=== PATIENT | male | born 1995 ===

== ENCOUNTER 2017-04-27 00:07 | Inpatient (IN) | payer OTHER ==
[2017-04-27 00:11] VITALS: BMI 21.5
[2017-04-27] MEDS ORDERED: Sodium Chloride 0.9% 1,000 ML IV STA ×2 (00:12→01:20)
[2017-04-27 00:45] LABS: ABG ALLEN TEST YES; ARTERIAL BLOOD GAS HCO3 25.1 mmol/L (21-28); ARTERIAL BLOOD GAS O2 SAT 94.2 % (95-98); ARTERIAL BLOOD GAS PCO2 57 mm/Hg (35-45); ARTERIAL BLOOD GAS PO2 66 mm/Hg (80-100); ARTERIAL BLOOD GAS TCO2 29.7 mmol/L (22-28)
[2017-04-27 00:54] LABS: BASO # 0.1 K/uL (0.0-0.2); BASO % 0.8 % (0.0-2.0); EOS # 0.2 K/uL (0.0-0.7); EOS % 3.1 % (0.0-4.0); HEMOGLOBIN 14.7 g/dL (12.0-18.0); LYMPH # 3.1 K/uL (1.0-4.3); LYMPH % 48.3 % (20.0-40.0); MEAN CELL VOLUME 87.6 fl (80.0-94.0); MEAN CORPUSCULAR HEMOGLOBIN 28.8 pg (27.0-31.0); MEAN CORPUSCULAR HGB CONC 32.9 g/dL (33.0-37.0); MEAN PLATELET VOLUME 7.5 fl (7.2-11.7); MONO # 0.4 K/uL (0.0-0.8); NEUT # 2.7 K/uL (1.8-7.0); NEUT % 41.8 % (50.0-75.0); NRBC % 0.1 % (0.0-0.0); RBC 5.09 Mil/uL (4.40-5.90); RED CELL DISTRIBUTION WIDTH 13.3 % (11.5-14.5); WHITE BLOOD COUNT 6.4 K/uL (4.8-10.8)
[2017-04-27 01:07] LABS: ALB/GLOB RATIO 1.4 (1.0-2.1); ALBUMIN 4.6 g/dL (3.5-5.0); ALT/SGPT 52 U/L (21-72); AST/SGOT 30 U/L (17-59); BLOOD UREA NITROGEN 12 mg/dl (9-20); CALCIUM 8.9 mg/dL (8.4-10.2); GFR AFRICAN-AMERICAN > 60; GFR NON-AFRICAN AMERICAN > 60; MAGNESIUM 2.3 MG/DL (1.6-2.3)
--- NOTE | 2017-04-27 01:10 | ED PDOC ---
HPI: Psych/Substance Abuse Time Seen by Provider: 04/27/17 00:10 Chief Complaint (Nursing): Substance Abuse Chief Complaint (Provider): Substance Abuse ED Caveat: Acuity of Condition (Sedated) History Per: Other (Staff and pt's friend) History/Exam Limitations: clinical condition Additional Complaint(s): 40 y/o male came to the ED as a visitor (visiting pt named Issac Gerber) and was found slumped on the chair and unresponsive by a staff member. Mr Gerber reports that Cam took some tablets of the psychiatric medications the initial patient had in his bag which include gabapentin 100mg, seroquel 100mg, trazodone 100mg, metformin 850mg, vitamin B1 and cerovite. Patient's previous visits demonstrates history of substance abuse and alcohol intoxication. Past Medical History Reviewed: Unable To Obtain Vital Signs: Last Vital Signs Temp 98.0 F 04/27/17 00:26 Pulse 136 H 04/27/17 00:26 Resp 20 04/27/17 00:26 BP 113/74 04/27/17 00:26 Pulse Ox 97 04/27/17 00:26 - Family History Family History: States: Unknown Family Hx - Home Medications Home Medications: Ambulatory Orders Medication Instructions Recorded Unobtainable 04/27/17 - Allergies Allergies/Adverse Reactions: Allergies Allergy/AdvReac Type Severity Reaction Status Date / Time Unobtainable Allergy Verified 03/23/17 20:40 Review of Systems Review Of Systems: ROS cannot be obtained secondary to pt's inabilty to answer questions. (Cannot be obtained du to patient's clinical condition) Neurological: Positive for: Other (Possible overdose) Physical Exam - Reviewed Nursing Documentation Reviewed: Yes Vital Signs Reviewed: Yes - Physical Exam Appears: Positive for: In Acute Distress (obtunded) Head Exam: Positive for: ATRAUMATIC, NORMOCEPHALIC Skin: Positive for: Warm, Dry Eye Exam: Positive for: EOMI, PERRL ENT: Positive for: Other (tacky mucus membranes, +gag reflex) Neck: Positive for: Painless ROM, Supple Cardiovascular/Chest: Positive for: Regular Rate, Rhythm. Negative for: Murmur Respiratory: Negative for: Rales, Wheezing, Respiratory Distress Gastrointestinal/Abdominal: Positive for: Soft. Negative for: Tenderness Back: Positive for: Normal Inspection. Negative for: Decreased ROM Extremity: Negative for: Pedal Edema, Deformity Lymphatic: Negative for: Adenopathy Neurologic/Psych: Positive for: Other (Deeply lethargic, but responds to painful and loud verbal stimuli, attempts to open eyes when asked but falls back asleep. GCS 10). Negative for: Alert, Oriented, Motor/Sensory Deficits - Laboratory Results Result Diagrams: 04/28/17 05:00 04/28/17 05:00 - ECG ECG: Positive for: Interpreted By Me ECG Rhythm: Positive for: Normal QRS, Normal ST Segment, Sinus Rhythm O2 Sat by Pulse Oximetry: 97 (RA) Pulse Ox Interpretation: Normal - Radiology X-Ray: Interpreted by Me X-Ray Interpretation: No Acute Disease - Critical Care Total Time (In Min): 45 Documented Critical Care: Time excludes all time spent performint seperately billable procedures Medical Decision Making Medical Decision Making: Time: 00:11 Initial Impression: Possible overdose Plan: EKG Acetaminophen Alcohol serum CMP Dilantin Drug screen Magnesium Phosphorous Salicylate Valproic acid Poison control consulting Urine dipstick Chest x-ray 1:1 observation Call poison control Glucose, blood, POC Urinary catheter insertion O2 via nasal cannula Reevaluation Time: 00:50 --Case was discussed with Sarita at poison center who recommended supportive care, IV fluids for hypotension, caution for respiratory depression. --Labs for coingestions --EKG repeat in about 4-6 hours. Labs demonstrate acidosis and elevated lactic acid (dehydration v lactic acidosis due to metformin). Elevated BAL. On reeval pt slightly more easily arousable, but continues to fall asleep immediately. Scribe Attestation: Documented by Gabino Arriaga acting as a scribe for Andressa Ghosh MD. Scribe Attestation: All medical record entries made by the Scribe were at my direction and personally dictated by me. I have reviewed the chart and agree that the record accurately reflects my personal performance of the history, physical exam, medical decision making, and the department course for this patient. I have also personally directed, reviewed, and agree with the discharge instructions and disposition. Disposition - Clinical Impression Clinical Impression: Overdose, Alcohol intoxication Discussed With : Richard Concepcion Doctor Will See Patient In The: ED - Disposition Disposition Time: 00:30 Condition: CRITICAL - Pt Status Changed To: Hospital Disposition Of: Inpatient - Admit Certification Admit to Inpatient:: After my assessment, the patient will require hospitalization for at least two midnights. This is because of the severity of symptoms shown, intensity of services needed, and/or the medical risk in this patient being treated as an outpatient. - POA Present On Arrival: Falls Or Trauma
[2017-04-27 01:23] LABS: BARBITURATES, UR NEGATIVE (NEGATIVE); BENZODIAZEPINES, UR NEGATIVE (NEGATIVE); OPIATES, UR NEGATIVE (NEGATIVE); PHENCYCLIDINE, UR NEGATIVE (NEGATIVE)
[2017-04-27 01:41] LABS: ACETAMINOPHEN < 10.0 ug/ml (10.0-30.0); DILANTIN (PHENYTOIN) < 3.0 ug/ML (10-20); SALICYLATE < 1.0 mg/dl
[2017-04-27 01:43] LABS: VALPROIC ACID < 10.0 ug/mL (50.0-100.0)
--- NOTE | 2017-04-27 02:40 | CP.PCM.HP ---
History of Present Illness - History of Present Illness History of Present Illness: CC: Overdose HPI: This is a 40 y/o male with unknown history who was visiting another patient here in ER when he decided to take several of this patient's medications for unclear reasons. Medications included neurontin, seroquel, and trazadone among others. Patient is somnolent and provides no history. All history obtained from chart and staff. ROS: Cannot be performed, patient not responsive MHx/SHx: Unknown, as patient cannot provide Allergies: Unknown Medications: Unknown Family Hx/Social Hx: Unknown Present on Admission - Present on Admission Any Indicators Present on Admission: No Past Patient History - Past Social History Smoking Status: Unknown If Ever Smoked - PSYCHIATRIC Hx Substance Use: Yes - SURGICAL HISTORY Hx Surgeries: No Meds Allergies/Adverse Reactions: Allergies Allergy/AdvReac Type Severity Reaction Status Date / Time Unobtainable Allergy Verified 03/23/17 20:40 Physical Exam - Constitutional Additional comments: somnolent, barely rousable with sternal rub - Head Exam Head Exam: ATRAUMATIC - ENT Exam ENT Exam: Mucous Membranes Moist - Respiratory Exam Respiratory Exam: Clear to Auscultation Bilateral, NORMAL BREATHING PATTERN - Cardiovascular Exam Cardiovascular Exam: REGULAR RHYTHM, +S1, +S2 - GI/Abdominal Exam GI & Abdominal Exam: Normal Bowel Sounds, Soft - Extremities Exam Extremities exam: Positive for: normal inspection - Neurological Exam Additional comments: as noted, patient completely somnolent - Skin Skin Exam: Dry, Warm Results - Vital Signs Recent Vital Signs: Last Vital Signs Temp 98.0 F 04/27/17 00:26 Pulse 136 H 04/27/17 00:26 Resp 20 04/27/17 00:26 BP 113/74 04/27/17 00:26 Pulse Ox 97 04/27/17 01:20 - Labs Result Diagrams: 04/27/17 00:49 04/27/17 00:49 Labs: Laboratory Results - last 24 hr 04/27/17 04/27/17 04/27/17 00:36 00:49 00:49 WBC RBC Hgb Hct MCV MCH MCHC RDW Plt Count MPV Neut % (Auto) Lymph % (Auto) Holt % (Auto) Eos % (Auto) Baso % (Auto) Neut # Lymph # Holt # Eos # Baso # pCO2 57 H pO2 66 L HCO3 25.1 ABG pH 7.30 L ABG Total CO2 29.7 H ABG O2 Saturation 94.2 L ABG Base Excess 0.4 Castillo Test Yes ABG Potassium 3.6 A-a O2 Difference 62.0 Sodium 142.0 149 H Chloride 106.0 104 Glucose 108 Lactate 2.6 H Vent Mode 2lnc FiO2 28.0 Crit Value Called To hayley Ghosh md Crit Value Called By [facility] Crit Value Read Back Y Blood Gas Notified Time 44 Potassium 3.6 Carbon Dioxide 26 Anion Gap 23 H BUN 12 Creatinine 0.9 Est GFR ( Amer) > 60 Est GFR (Non-Af Amer) > 60 Random Glucose 97 Calcium 8.9 Phosphorus 5.4 H Magnesium 2.3 Total Bilirubin 0.3 AST 30 ALT 52 Alkaline Phosphatase 69 Total Protein 7.8 Albumin 4.6 Globulin 3.3 Albumin/Globulin Ratio 1.4 Arterial Blood Potassium 3.6 Salicylates < 1.0 Urine Opiates Screen Urine Methadone Screen Acetaminophen < 10.0 L Ur Barbiturates Screen Phenytoin < 3.0 L Valproic Acid < 10.0 L Ur Phencyclidine Scrn Ur Amphetamines Screen U Benzodiazepines Scrn U Oth Cocaine Metabols U Cannabinoids Screen Alcohol, Quantitative 305 H* 04/27/17 04/27/17 00:49 01:04 WBC 6.4 RBC 5.09 Hgb 14.7 Hct 44.6 MCV 87.6 MCH 28.8 MCHC 32.9 L RDW 13.3 Plt Count 317 MPV 7.5 Neut % (Auto) 41.8 L Lymph % (Auto) 48.3 H Holt % (Auto) 6.0 Eos % (Auto) 3.1 Baso % (Auto) 0.8 Neut # 2.7 Lymph # 3.1 Holt # 0.4 Eos # 0.2 Baso # 0.1 pCO2 pO2 HCO3 ABG pH ABG Total CO2 ABG O2 Saturation ABG Base Excess Castillo Test ABG Potassium A-a O2 Difference Sodium Chloride Glucose Lactate Vent Mode FiO2 Crit Value Called To Crit Value Called By Crit Value Read Back Blood Gas Notified Time Potassium Carbon Dioxide Anion Gap BUN Creatinine Est GFR ( Amer) Est GFR (Non-Af Amer) Random Glucose Calcium Phosphorus Magnesium Total Bilirubin AST ALT Alkaline Phosphatase Total Protein Albumin Globulin Albumin/Globulin Ratio Arterial Blood Potassium Salicylates Urine Opiates Screen Negative Urine Methadone Screen Negative Acetaminophen Ur Barbiturates Screen Negative Phenytoin Valproic Acid Ur Phencyclidine Scrn Negative Ur Amphetamines Screen Negative U Benzodiazepines Scrn Negative U Oth Cocaine Metabols Negative U Cannabinoids Screen Negative Alcohol, Quantitative Assessment & Plan (1) Overdose Assessment and Plan: a/p: 40 y/o male with multi Rx medication overdose -Admit to ICU -NPO, IVF -Supportive care per poison control -Repeat labs, EtOH level in AM; EKG in AM -Psych consult in AM -SCDs for DVT PPx Status: Acute (2) Alcohol intoxication Status: Acute (3) DVT prophylaxis Status: Acute
[2017-04-27] MEDS ORDERED: Sodium Chloride 0.9% 1,000 ML IV SCH (02:45)
[2017-04-27 05:33] LABS: HEMOGLOBIN 13.1 g/dL (12.0-18.0); MEAN CELL VOLUME 87.8 fl (80.0-94.0); MEAN CORPUSCULAR HEMOGLOBIN 28.6 pg (27.0-31.0); MEAN CORPUSCULAR HGB CONC 32.5 g/dL (33.0-37.0); MEAN PLATELET VOLUME 7.4 fl (7.2-11.7); RBC 4.57 Mil/uL (4.40-5.90); RED CELL DISTRIBUTION WIDTH 13.3 % (11.5-14.5); WHITE BLOOD COUNT 6.2 K/uL (4.8-10.8)
[2017-04-27 06:02] LABS: ALB/GLOB RATIO 1.3 (1.0-2.1); ALBUMIN 3.7 g/dL (3.5-5.0); ALT/SGPT 48 U/L (21-72); AST/SGOT 25 U/L (17-59); BLOOD UREA NITROGEN 10 mg/dl (9-20); CALCIUM 8.3 mg/dL (8.4-10.2); GFR AFRICAN-AMERICAN > 60; GFR NON-AFRICAN AMERICAN > 60
--- NOTE | 2017-04-27 09:17 | RAD ---
HISTORY: possible overdose COMPARISON: No prior. FINDINGS: LUNGS: No active pulmonary disease. PLEURA: No significant pleural effusion identified, no pneumothorax apparent. CARDIOVASCULAR: Normal. OSSEOUS STRUCTURES: Potential levoscoliotic thoracolumbar spinal deformity versus position related changes in curvature. VISUALIZED UPPER ABDOMEN: Normal. OTHER FINDINGS: None. IMPRESSION: No acute cardiopulmonary is appreciable.
--- NOTE | 2017-04-27 10:31 | CP.CCUPN ---
CCU Objective - Vital Signs / Intake & Output Vital Signs (Last 4 hours): Vital Signs Temp Pulse Resp BP Pulse Ox 04/27/17 10:00 92 H 10 L 110/51 L 100 04/27/17 08:00 98.4 F 79 11 L 110/55 L 98 Intake and Output (Last 8hrs): Intake & Output 04/26/17 04/27/17 04/27/17 22:59 06:59 14:59 Intake Total 250 Output Total 1150 100 Balance -1150 150 Weight 175 lb Intake: IV 250 Output: Urine 1150 100 Urethral (Ray) 1150 100 - Medications Active Medications: Active Medications Generic Name Dose Route Start Last Admin Trade Name Freq PRN Reason Stop Dose Admin Sodium Chloride 1,000 mls @ 100 mls/hr 04/27/17 02:45 04/27/17 03:30 Sodium Chloride 0.9% IV 04/27/17 22:44 100 mls/hr .Q10H SUNITHA Administration - Patient Studies Lab Studies: Lab Studies 04/27/17 04/27/17 04/27/17 Range/Units 10:17 05:39 05:00 WBC (4.8-10.8) K/uL RBC (4.40-5.90) Mil/uL Hgb (12.0-18.0) g/dL Hct (35.0-51.0) % MCV (80.0-94.0) fl MCH (27.0-31.0) pg MCHC (33.0-37.0) g/dL RDW (11.5-14.5) % Plt Count (130-400) K/uL MPV (7.2-11.7) fl Neut % (Auto) (50.0-75.0) % Lymph % (Auto) (20.0-40.0) % Rosebud % (Auto) (0.0-10.0) % Eos % (Auto) (0.0-4.0) % Baso % (Auto) (0.0-2.0) % Neut # (1.8-7.0) K/uL Lymph # (1.0-4.3) K/uL Rosebud # (0.0-0.8) K/uL Eos # (0.0-0.7) K/uL Baso # (0.0-0.2) K/uL pCO2 (35-45) mm/Hg pO2 (80-100) mm/Hg HCO3 (21-28) mmol/L ABG pH (7.35-7.45) ABG Total CO2 (22-28) mmol/L ABG O2 Saturation (95-98) % ABG Base Excess (-2.0-3.0) mmol/L Castillo Test ABG Potassium (3.6-5.2) mmol/L A-a O2 Difference mm/Hg Sodium 149 H (132-148) mmol/L Chloride 108 H (98-107) mmol/L Glucose (75-110) mg/dL Lactate (0.7-2.1) mmol/L Vent Mode FiO2 % Crit Value Called To Crit Value Called By Crit Value Read Back Blood Gas Notified Time Potassium 4.2 (3.6-5.0) MMOL/L Carbon Dioxide 25 (22-30) mmol/L Anion Gap 20 (10-20) BUN 10 (9-20) mg/dl Creatinine 0.8 (0.8-1.5) mg/dl Est GFR ( Amer) > 60 Est GFR (Non-Af Amer) > 60 POC Glucose (mg/dL) 69 79 (65-110) mg/dL Random Glucose 102 (75-110) mg/dL Calcium 8.3 L (8.4-10.2) mg/dL Phosphorus (2.5-4.5) mg/dl Magnesium (1.6-2.3) MG/DL Total Bilirubin 0.2 (0.2-1.3) mg/dl AST 25 (17-59) U/L ALT 48 (21-72) U/L Alkaline Phosphatase 55 (38-126) U/L Total Protein 6.5 (6.3-8.2) G/DL Albumin 3.7 (3.5-5.0) g/dL Globulin 2.8 (2.2-3.9) gm/dL Albumin/Globulin Ratio 1.3 (1.0-2.1) Arterial Blood Potassium (3.6-5.2) mmol/L Salicylates mg/dl Urine Opiates Screen (NEGATIVE) Urine Methadone Screen (NEGATIVE) Acetaminophen (10.0-30.0) ug/ml Ur Barbiturates Screen (NEGATIVE) Phenytoin (10-20) ug/ML Valproic Acid (50.0-100.0) ug/mL Ur Phencyclidine Scrn (NEGATIVE) Ur Amphetamines Screen (NEGATIVE) U Benzodiazepines Scrn (NEGATIVE) U Oth Cocaine Metabols (NEGATIVE) U Cannabinoids Screen (NEGATIVE) Alcohol, Quantitative 172 H (0-10) mg/dl 04/27/17 04/27/17 04/27/17 Range/Units 05:00 03:59 01:04 WBC 6.2 (4.8-10.8) K/uL RBC 4.57 (4.40-5.90) Mil/uL Hgb 13.1 (12.0-18.0) g/dL Hct 40.1 (35.0-51.0) % MCV 87.8 (80.0-94.0) fl MCH 28.6 (27.0-31.0) pg MCHC 32.5 L (33.0-37.0) g/dL RDW 13.3 (11.5-14.5) % Plt Count 274 (130-400) K/uL MPV 7.4 (7.2-11.7) fl Neut % (Auto) (50.0-75.0) % Lymph % (Auto) (20.0-40.0) % Rosebud % (Auto) (0.0-10.0) % Eos % (Auto) (0.0-4.0) % Baso % (Auto) (0.0-2.0) % Neut # (1.8-7.0) K/uL Lymph # (1.0-4.3) K/uL Rosebud # (0.0-0.8) K/uL Eos # (0.0-0.7) K/uL Baso # (0.0-0.2) K/uL pCO2 (35-45) mm/Hg pO2 (80-100) mm/Hg HCO3 (21-28) mmol/L ABG pH (7.35-7.45) ABG Total CO2 (22-28) mmol/L ABG O2 Saturation (95-98) % ABG Base Excess (-2.0-3.0) mmol/L Castillo Test ABG Potassium (3.6-5.2) mmol/L A-a O2 Difference mm/Hg Sodium (132-148) mmol/L Chloride (98-107) mmol/L Glucose (75-110) mg/dL Lactate (0.7-2.1) mmol/L Vent Mode FiO2 % Crit Value Called To Crit Value Called By Crit Value Read Back Blood Gas Notified Time Potassium (3.6-5.0) MMOL/L Carbon Dioxide (22-30) mmol/L Anion Gap (10-20) BUN (9-20) mg/dl Creatinine (0.8-1.5) mg/dl Est GFR ( Amer) Est GFR (Non-Af Amer) POC Glucose (mg/dL) 96 (65-110) mg/dL Random Glucose (75-110) mg/dL Calcium (8.4-10.2) mg/dL Phosphorus (2.5-4.5) mg/dl Magnesium (1.6-2.3) MG/DL Total Bilirubin (0.2-1.3) mg/dl AST (17-59) U/L ALT (21-72) U/L Alkaline Phosphatase (38-126) U/L Total Protein (6.3-8.2) G/DL Albumin (3.5-5.0) g/dL Globulin (2.2-3.9) gm/dL Albumin/Globulin Ratio (1.0-2.1) Arterial Blood Potassium (3.6-5.2) mmol/L Salicylates mg/dl Urine Opiates Screen Negative (NEGATIVE) Urine Methadone Screen Negative (NEGATIVE) Acetaminophen (10.0-30.0) ug/ml Ur Barbiturates Screen Negative (NEGATIVE) Phenytoin (10-20) ug/ML Valproic Acid (50.0-100.0) ug/mL Ur Phencyclidine Scrn Negative (NEGATIVE) Ur Amphetamines Screen Negative (NEGATIVE) U Benzodiazepines Scrn Negative (NEGATIVE) U Oth Cocaine Metabols Negative (NEGATIVE) U Cannabinoids Screen Negative (NEGATIVE) Alcohol, Quantitative (0-10) mg/dl 04/27/17 04/27/17 04/27/17 Range/Units 00:49 00:49 00:49 WBC 6.4 (4.8-10.8) K/uL RBC 5.09 (4.40-5.90) Mil/uL Hgb 14.7 (12.0-18.0) g/dL Hct 44.6 (35.0-51.0) % MCV 87.6 (80.0-94.0) fl MCH 28.8 (27.0-31.0) pg MCHC 32.9 L (33.0-37.0) g/dL RDW 13.3 (11.5-14.5) % Plt Count 317 (130-400) K/uL MPV 7.5 (7.2-11.7) fl Neut % (Auto) 41.8 L (50.0-75.0) % Lymph % (Auto) 48.3 H (20.0-40.0) % Rosebud % (Auto) 6.0 (0.0-10.0) % Eos % (Auto) 3.1 (0.0-4.0) % Baso % (Auto) 0.8 (0.0-2.0) % Neut # 2.7 (1.8-7.0) K/uL Lymph # 3.1 (1.0-4.3) K/uL Rosebud # 0.4 (0.0-0.8) K/uL Eos # 0.2 (0.0-0.7) K/uL Baso # 0.1 (0.0-0.2) K/uL pCO2 (35-45) mm/Hg pO2 (80-100) mm/Hg HCO3 (21-28) mmol/L ABG pH (7.35-7.45) ABG Total CO2 (22-28) mmol/L ABG O2 Saturation (95-98) % ABG Base Excess (-2.0-3.0) mmol/L Castillo Test ABG Potassium (3.6-5.2) mmol/L A-a O2 Difference mm/Hg Sodium 149 H (132-148) mmol/L Chloride 104 (98-107) mmol/L Glucose (75-110) mg/dL Lactate (0.7-2.1) mmol/L Vent Mode FiO2 % Crit Value Called To Crit Value Called By Crit Value Read Back Blood Gas Notified Time Potassium 3.6 (3.6-5.0) MMOL/L Carbon Dioxide 26 (22-30) mmol/L Anion Gap 23 H (10-20) BUN 12 (9-20) mg/dl Creatinine 0.9 (0.8-1.5) mg/dl Est GFR ( Amer) > 60 Est GFR (Non-Af Amer) > 60 POC Glucose (mg/dL) (65-110) mg/dL Random Glucose 97 (75-110) mg/dL Calcium 8.9 (8.4-10.2) mg/dL Phosphorus 5.4 H (2.5-4.5) mg/dl Magnesium 2.3 (1.6-2.3) MG/DL Total Bilirubin 0.3 (0.2-1.3) mg/dl AST 30 (17-59) U/L ALT 52 (21-72) U/L Alkaline Phosphatase 69 (38-126) U/L Total Protein 7.8 (6.3-8.2) G/DL Albumin 4.6 (3.5-5.0) g/dL Globulin 3.3 (2.2-3.9) gm/dL Albumin/Globulin Ratio 1.4 (1.0-2.1) Arterial Blood Potassium (3.6-5.2) mmol/L Salicylates < 1.0 mg/dl Urine Opiates Screen (NEGATIVE) Urine Methadone Screen (NEGATIVE) Acetaminophen < 10.0 L (10.0-30.0) ug/ml Ur Barbiturates Screen (NEGATIVE) Phenytoin < 3.0 L (10-20) ug/ML Valproic Acid < 10.0 L (50.0-100.0) ug/mL Ur Phencyclidine Scrn (NEGATIVE) Ur Amphetamines Screen (NEGATIVE) U Benzodiazepines Scrn (NEGATIVE) U Oth Cocaine Metabols (NEGATIVE) U Cannabinoids Screen (NEGATIVE) Alcohol, Quantitative 305 H* (0-10) mg/dl 04/27/17 Range/Units 00:36 WBC (4.8-10.8) K/uL RBC (4.40-5.90) Mil/uL Hgb (12.0-18.0) g/dL Hct (35.0-51.0) % MCV (80.0-94.0) fl MCH (27.0-31.0) pg MCHC (33.0-37.0) g/dL RDW (11.5-14.5) % Plt Count (130-400) K/uL MPV (7.2-11.7) fl Neut % (Auto) (50.0-75.0) % Lymph % (Auto) (20.0-40.0) % Rosebud % (Auto) (0.0-10.0) % Eos % (Auto) (0.0-4.0) % Baso % (Auto) (0.0-2.0) % Neut # (1.8-7.0) K/uL Lymph # (1.0-4.3) K/uL Rosebud # (0.0-0.8) K/uL Eos # (0.0-0.7) K/uL Baso # (0.0-0.2) K/uL pCO2 57 H (35-45) mm/Hg pO2 66 L (80-100) mm/Hg HCO3 25.1 (21-28) mmol/L ABG pH 7.30 L (7.35-7.45) ABG Total CO2 29.7 H (22-28) mmol/L ABG O2 Saturation 94.2 L (95-98) % ABG Base Excess 0.4 (-2.0-3.0) mmol/L Castillo Test Yes ABG Potassium 3.6 (3.6-5.2) mmol/L A-a O2 Difference 62.0 mm/Hg Sodium 142.0 (132-148) mmol/L Chloride 106.0 (98-107) mmol/L Glucose 108 (75-110) mg/dL Lactate 2.6 H (0.7-2.1) mmol/L Vent Mode 2lnc FiO2 28.0 % Crit Value Called To hayley Ghosh md Crit Value Called By [facility] Crit Value Read Back Y Blood Gas Notified Time 44 Potassium (3.6-5.0) MMOL/L Carbon Dioxide (22-30) mmol/L Anion Gap (10-20) BUN (9-20) mg/dl Creatinine (0.8-1.5) mg/dl Est GFR ( Amer) Est GFR (Non-Af Amer) POC Glucose (mg/dL) (65-110) mg/dL Random Glucose (75-110) mg/dL Calcium (8.4-10.2) mg/dL Phosphorus (2.5-4.5) mg/dl Magnesium (1.6-2.3) MG/DL Total Bilirubin (0.2-1.3) mg/dl AST (17-59) U/L ALT (21-72) U/L Alkaline Phosphatase (38-126) U/L Total Protein (6.3-8.2) G/DL Albumin (3.5-5.0) g/dL Globulin (2.2-3.9) gm/dL Albumin/Globulin Ratio (1.0-2.1) Arterial Blood Potassium 3.6 (3.6-5.2) mmol/L Salicylates mg/dl Urine Opiates Screen (NEGATIVE) Urine Methadone Screen (NEGATIVE) Acetaminophen (10.0-30.0) ug/ml Ur Barbiturates Screen (NEGATIVE) Phenytoin (10-20) ug/ML Valproic Acid (50.0-100.0) ug/mL Ur Phencyclidine Scrn (NEGATIVE) Ur Amphetamines Screen (NEGATIVE) U Benzodiazepines Scrn (NEGATIVE) U Oth Cocaine Metabols (NEGATIVE) U Cannabinoids Screen (NEGATIVE) Alcohol, Quantitative (0-10) mg/dl Laboratory Results - last 24 hr 04/27/17 04/27/17 04/27/17 00:36 00:49 00:49 WBC RBC Hgb Hct MCV MCH MCHC RDW Plt Count MPV Neut % (Auto) Lymph % (Auto) Rosebud % (Auto) Eos % (Auto) Baso % (Auto) Neut # Lymph # Rosebud # Eos # Baso # pCO2 57 H pO2 66 L HCO3 25.1 ABG pH 7.30 L ABG Total CO2 29.7 H ABG O2 Saturation 94.2 L ABG Base Excess 0.4 Castillo Test Yes ABG Potassium 3.6 A-a O2 Difference 62.0 Sodium 142.0 149 H Chloride 106.0 104 Glucose 108 Lactate 2.6 H Vent Mode 2lnc FiO2 28.0 Crit Value Called To hayley Ghosh md Crit Value Called By Radha deshpande Crit Value Read Back Y Blood Gas Notified Time 44 Potassium 3.6 Carbon Dioxide 26 Anion Gap 23 H BUN 12 Creatinine 0.9 Est GFR ( Amer) > 60 Est GFR (Non-Af Amer) > 60 POC Glucose (mg/dL) Random Glucose 97 Calcium 8.9 Phosphorus 5.4 H Magnesium 2.3 Total Bilirubin 0.3 AST 30 ALT 52 Alkaline Phosphatase 69 Total Protein 7.8 Albumin 4.6 Globulin 3.3 Albumin/Globulin Ratio 1.4 Arterial Blood Potassium 3.6 Salicylates < 1.0 Urine Opiates Screen Urine Methadone Screen Acetaminophen < 10.0 L Ur Barbiturates Screen Phenytoin < 3.0 L Valproic Acid < 10.0 L Ur Phencyclidine Scrn Ur Amphetamines Screen U Benzodiazepines Scrn U Oth Cocaine Metabols U Cannabinoids Screen Alcohol, Quantitative 305 H* 04/27/17 04/27/17 04/27/17 00:49 01:04 03:59 WBC 6.4 RBC 5.09 Hgb 14.7 Hct 44.6 MCV 87.6 MCH 28.8 MCHC 32.9 L RDW 13.3 Plt Count 317 MPV 7.5 Neut % (Auto) 41.8 L Lymph % (Auto) 48.3 H Rosebud % (Auto) 6.0 Eos % (Auto) 3.1 Baso % (Auto) 0.8 Neut # 2.7 Lymph # 3.1 Rosebud # 0.4 Eos # 0.2 Baso # 0.1 pCO2 pO2 HCO3 ABG pH ABG Total CO2 ABG O2 Saturation ABG Base Excess Castillo Test ABG Potassium A-a O2 Difference Sodium Chloride Glucose Lactate Vent Mode FiO2 Crit Value Called To Crit Value Called By Crit Value Read Back Blood Gas Notified Time Potassium Carbon Dioxide Anion Gap BUN Creatinine Est GFR ( Amer) Est GFR (Non-Af Amer) POC Glucose (mg/dL) 96 Random Glucose Calcium Phosphorus Magnesium Total Bilirubin AST ALT Alkaline Phosphatase Total Protein Albumin Globulin Albumin/Globulin Ratio Arterial Blood Potassium Salicylates Urine Opiates Screen Negative Urine Methadone Screen Negative Acetaminophen Ur Barbiturates Screen Negative Phenytoin Valproic Acid Ur Phencyclidine Scrn Negative Ur Amphetamines Screen Negative U Benzodiazepines Scrn Negative U Oth Cocaine Metabols Negative U Cannabinoids Screen Negative Alcohol, Quantitative 04/27/17 04/27/17 04/27/17 05:00 05:00 05:39 WBC 6.2 RBC 4.57 Hgb 13.1 Hct 40.1 MCV 87.8 MCH 28.6 MCHC 32.5 L RDW 13.3 Plt Count 274 MPV 7.4 Neut % (Auto) Lymph % (Auto) Rose[place] % (Auto) Eos % (Auto) Baso % (Auto) Neut # Lymph # Rosebud # Eos # Baso # pCO2 pO2 HCO3 ABG pH ABG Total CO2 ABG O2 Saturation ABG Base Excess Castillo Test ABG Potassium A-a O2 Difference Sodium 149 H Chloride 108 H Glucose Lactate Vent Mode FiO2 Crit Value Called To Crit Value Called By Crit Value Read Back Blood Gas Notified Time Potassium 4.2 Carbon Dioxide 25 Anion Gap 20 BUN 10 Creatinine 0.8 Est GFR ( Amer) > 60 Est GFR (Non-Af Amer) > 60 POC Glucose (mg/dL) 79 Random Glucose 102 Calcium 8.3 L Phosphorus Magnesium Total Bilirubin 0.2 AST 25 ALT 48 Alkaline Phosphatase 55 Total Protein 6.5 Albumin 3.7 Globulin 2.8 Albumin/Globulin Ratio 1.3 Arterial Blood Potassium Salicylates Urine Opiates Screen Urine Methadone Screen Acetaminophen Ur Barbiturates Screen Phenytoin Valproic Acid Ur Phencyclidine Scrn Ur Amphetamines Screen U Benzodiazepines Scrn U Oth Cocaine Metabols U Cannabinoids Screen Alcohol, Quantitative 172 H 04/27/17 10:17 WBC RBC Hgb Hct MCV MCH MCHC RDW Plt Count MPV Neut % (Auto) Lymph % (Auto) [place] % (Auto) Eos % (Auto) Baso % (Auto) Neut # Lymph # [place] # Eos # Baso # pCO2 pO2 HCO3 ABG pH ABG Total CO2 ABG O2 Saturation ABG Base Excess Castillo Test ABG Potassium A-a O2 Difference Sodium Chloride Glucose Lactate Vent Mode FiO2 Crit Value Called To Crit Value Called By Crit Value Read Back Blood Gas Notified Time Potassium Carbon Dioxide Anion Gap BUN Creatinine Est GFR ( Amer) Est GFR (Non-Af Amer) POC Glucose (mg/dL) 69 Random Glucose Calcium Phosphorus Magnesium Total Bilirubin AST ALT Alkaline Phosphatase Total Protein Albumin Globulin Albumin/Globulin Ratio Arterial Blood Potassium Salicylates Urine Opiates Screen Urine Methadone Screen Acetaminophen Ur Barbiturates Screen Phenytoin Valproic Acid Ur Phencyclidine Scrn Ur Amphetamines Screen U Benzodiazepines Scrn U Oth Cocaine Metabols U Cannabinoids Screen Alcohol, Quantitative EKG/Cardiology Studies: Cardiology / EKG Studies 04/27/17 00:10 ELECTROCARDIOGRAM Stat Comment: Mode Of Transportation: Reason For Exam: possible overdose Fingerstick Blood Sugar Results: 69 Critical Care Progress Note - Nutrition Nutrition: Nutrition Category Date Time Status NPO Diet [DIET] Diets 04/27/17 Breakfast Active
[2017-04-27] MEDS ORDERED: Dextrose 5%/0.45% NS 1,000 ML IV SCH (10:45)
[2017-04-27] MEDS ORDERED: Dextrose 50% SYRINGE Inj (50 ml) IVP ONE (11:38)
[2017-04-27] MEDS ORDERED: Dextrose 50% SYRINGE Inj (50 ml) ONE (11:43)
--- NOTE | 2017-04-27 13:57 | CP.PCM.CON ---
History of Present Illness - History of Present Illness History of Present Illness: consult requested for possible overdose This is a 21 y/o male with unknown history who was visiting another patient here in ER when he decided to take several of this patient's medications for unclear reasons. Medications included neurontin, seroquel, and trazadone among others. pt is guarded evasive not forward coming with information pt reported he is from [facility] has been in the [facility] , he reported currently depressed as he is living in a correction and has conflict with his brother currently has no support pt stated he also recently lost his job and since then for the past two months has been drinking alcohol daily he stated he does nor remember overdosing on his friends medications as that time he was intoxicated pt presenting very distressed dysphoric and when offered voluntary admission he refused, when pt was asked if this was a suicidal attempt he closed his eyes refusing to comment Past Patient History - Past Medical History & Family History Past Medical History?: No - Past Social History Smoking Status: Unknown If Ever Smoked - CARDIAC Hx Cardiac Disorders: No - PULMONARY Hx Respiratory Disorders: No - NEUROLOGICAL Hx Neurological Disorder: No - HEENT Hx HEENT Problems: No - RENAL Hx Chronic Kidney Disease: No - ENDOCRINE/METABOLIC Hx Endocrine Disorders: No - HEMATOLOGICAL/ONCOLOGICAL Hx Blood Disorders: No - INTEGUMENTARY Hx Dermatological Problems: No - MUSCULOSKELETAL/RHEUMATOLOGICAL Hx Musculoskeletal Disorders: No Hx Falls: No - GASTROINTESTINAL Hx Gastrointestinal Disorders: No - GENITOURINARY/GYNECOLOGICAL Hx Genitourinary Disorders: No - PSYCHIATRIC Hx Psychophysiologic Disorder: Yes Hx Substance Use: Yes (ETOH and substances) - SURGICAL HISTORY Hx Surgeries: No - ANESTHESIA Hx Anesthesia: No (unknown) Meds Allergies/Adverse Reactions: Allergies Allergy/AdvReac Type Severity Reaction Status Date / Time Unobtainable Allergy Verified 03/23/17 20:40 - Medications Medications: Current Medications Dextrose/Sodium Chloride (Dextrose 5%/0.45% Ns 1000 Ml) 1,000 mls @ 100 mls/hr IV .Q10H SUNITHA Stop: 04/28/17 10:32 Last Admin: 04/27/17 10:39 Dose: 100 mls/hr Physical Exam - Psychiatric Exam Additional comments: pt in bed, poor eye contact, underproductive speech, depressed mood and affect, evasive guarded thought form circumstantial alert awake oriented to person and place, poor insight and poor impulse control Results - Vital Signs Recent Vital Signs: Last Vital Signs Temp 97.9 F 04/27/17 12:00 Pulse 85 04/27/17 12:00 Resp 16 04/27/17 12:00 BP 121/56 L 04/27/17 12:00 Pulse Ox 97 04/27/17 12:00 - Labs Result Diagrams: 04/27/17 05:00 04/27/17 05:00 Labs: Laboratory Results - last 24 hr 04/27/17 04/27/17 04/27/17 00:36 00:49 00:49 WBC RBC Hgb Hct MCV MCH MCHC RDW Plt Count MPV Neut % (Auto) Lymph % (Auto) [place] % (Auto) Eos % (Auto) Baso % (Auto) Neut # Lymph # [place] # Eos # Baso # pCO2 57 H pO2 66 L HCO3 25.1 ABG pH 7.30 L ABG Total CO2 29.7 H ABG O2 Saturation 94.2 L ABG Base Excess 0.4 Castillo Test Yes ABG Potassium 3.6 A-a O2 Difference 62.0 Sodium 142.0 149 H Chloride 106.0 104 Glucose 108 Lactate 2.6 H Vent Mode 2lnc FiO2 28.0 Crit Value Called To hayley Ghosh md Crit Value Called By Radha deshpande Crit Value Read Back Y Blood Gas Notified Time 44 Potassium 3.6 Carbon Dioxide 26 Anion Gap 23 H BUN 12 Creatinine 0.9 Est GFR ( Amer) > 60 Est GFR (Non-Af Amer) > 60 POC Glucose (mg/dL) Random Glucose 97 Calcium 8.9 Phosphorus 5.4 H Magnesium 2.3 Total Bilirubin 0.3 AST 30 ALT 52 Alkaline Phosphatase 69 Total Protein 7.8 Albumin 4.6 Globulin 3.3 Albumin/Globulin Ratio 1.4 Arterial Blood Potassium 3.6 Salicylates < 1.0 Urine Opiates Screen Urine Methadone Screen Acetaminophen < 10.0 L Ur Barbiturates Screen Phenytoin < 3.0 L Valproic Acid < 10.0 L Ur Phencyclidine Scrn Ur Amphetamines Screen U Benzodiazepines Scrn U Oth Cocaine Metabols U Cannabinoids Screen Alcohol, Quantitative 305 H* 04/27/17 04/27/17 04/27/17 00:49 01:04 03:59 WBC 6.4 RBC 5.09 Hgb 14.7 Hct 44.6 MCV 87.6 MCH 28.8 MCHC 32.9 L RDW 13.3 Plt Count 317 MPV 7.5 Neut % (Auto) 41.8 L Lymph % (Auto) 48.3 H [place] % (Auto) 6.0 Eos % (Auto) 3.1 Baso % (Auto) 0.8 Neut # 2.7 Lymph # 3.1 [place] # 0.4 Eos # 0.2 Baso # 0.1 pCO2 pO2 HCO3 ABG pH ABG Total CO2 ABG O2 Saturation ABG Base Excess Castillo Test ABG Potassium A-a O2 Difference Sodium Chloride Glucose Lactate Vent Mode FiO2 Crit Value Called To Crit Value Called By Crit Value Read Back Blood Gas Notified Time Potassium Carbon Dioxide Anion Gap BUN Creatinine Est GFR ( Amer) Est GFR (Non-Af Amer) POC Glucose (mg/dL) 96 Random Glucose Calcium Phosphorus Magnesium Total Bilirubin AST ALT Alkaline Phosphatase Total Protein Albumin Globulin Albumin/Globulin Ratio Arterial Blood Potassium Salicylates Urine Opiates Screen Negative Urine Methadone Screen Negative Acetaminophen Ur Barbiturates Screen Negative Phenytoin Valproic Acid Ur Phencyclidine Scrn Negative Ur Amphetamines Screen Negative U Benzodiazepines Scrn Negative U Oth Cocaine Metabols Negative U Cannabinoids Screen Negative Alcohol, Quantitative 04/27/17 04/27/17 04/27/17 05:00 05:00 05:39 WBC 6.2 RBC 4.57 Hgb 13.1 Hct 40.1 MCV 87.8 MCH 28.6 MCHC 32.5 L RDW 13.3 Plt Count 274 MPV 7.4 Neut % (Auto) Lymph % (Auto) [place] % (Auto) Eos % (Auto) Baso % (Auto) Neut # Lymph # [place] # Eos # Baso # pCO2 pO2 HCO3 ABG pH ABG Total CO2 ABG O2 Saturation ABG Base Excess Castillo Test ABG Potassium A-a O2 Difference Sodium 149 H Chloride 108 H Glucose Lactate Vent Mode FiO2 Crit Value Called To Crit Value Called By Crit Value Read Back Blood Gas Notified Time Potassium 4.2 Carbon Dioxide 25 Anion Gap 20 BUN 10 Creatinine 0.8 Est GFR ( Amer) > 60 Est GFR (Non-Af Amer) > 60 POC Glucose (mg/dL) 79 Random Glucose 102 Calcium 8.3 L Phosphorus Magnesium Total Bilirubin 0.2 AST 25 ALT 48 Alkaline Phosphatase 55 Total Protein 6.5 Albumin 3.7 Globulin 2.8 Albumin/Globulin Ratio 1.3 Arterial Blood Potassium Salicylates Urine Opiates Screen Urine Methadone Screen Acetaminophen Ur Barbiturates Screen Phenytoin Valproic Acid Ur Phencyclidine Scrn Ur Amphetamines Screen U Benzodiazepines Scrn U Oth Cocaine Metabols U Cannabinoids Screen Alcohol, Quantitative 172 H 04/27/17 04/27/17 10:17 11:37 WBC RBC Hgb Hct MCV MCH MCHC RDW Plt Count MPV Neut % (Auto) Lymph % (Auto) [place] % (Auto) Eos % (Auto) Baso % (Auto) Neut # Lymph # [place] # Eos # Baso # pCO2 pO2 HCO3 ABG pH ABG Total CO2 ABG O2 Saturation ABG Base Excess Castillo Test ABG Potassium A-a O2 Difference Sodium Chloride Glucose Lactate Vent Mode FiO2 Crit Value Called To Crit Value Called By Crit Value Read Back Blood Gas Notified Time Potassium Carbon Dioxide Anion Gap BUN Creatinine Est GFR ( Amer) Est GFR (Non-Af Amer) POC Glucose (mg/dL) 69 74 Random Glucose Calcium Phosphorus Magnesium Total Bilirubin AST ALT Alkaline Phosphatase Total Protein Albumin Globulin Albumin/Globulin Ratio Arterial Blood Potassium Salicylates Urine Opiates Screen Urine Methadone Screen Acetaminophen Ur Barbiturates Screen Phenytoin Valproic Acid Ur Phencyclidine Scrn Ur Amphetamines Screen U Benzodiazepines Scrn U Oth Cocaine Metabols U Cannabinoids Screen Alcohol, Quantitative Assessment & Plan - Assessment and Plan (Free Text) Assessment: alcohol induced mood disorder with depressive features adjustment disorder wwith depressed mood Plan: pt will be referred for screenin g for involuntary admission for suicide risk
--- NOTE | 2017-04-27 18:24 | CARD ---
APPROVED REPORT EKG Measurement Heart [id number] <Conclusion> Normal sinus rhythm Normal ECG
[2017-04-27] MEDS ORDERED: Multivitamin (MVI) 10 ML, Thiamine 100 MG in Dextrose 5%/0.45% NS 1,000 ML IV ONE (23:19)
[2017-04-28 05:55] LABS: HEMOGLOBIN 13.8 g/dL (12.0-18.0); MEAN CELL VOLUME 88.1 fl (80.0-94.0); MEAN CORPUSCULAR HEMOGLOBIN 29.3 pg (27.0-31.0); MEAN CORPUSCULAR HGB CONC 33.3 g/dL (33.0-37.0); RBC 4.72 Mil/uL (4.40-5.90); WHITE BLOOD COUNT 8.8 K/uL (4.8-10.8)
[2017-04-28 06:20] LABS: BLOOD UREA NITROGEN 8 mg/dl (9-20); CALCIUM 9.1 mg/dL (8.4-10.2); GFR AFRICAN-AMERICAN > 60; GFR NON-AFRICAN AMERICAN > 60
--- NOTE | 2017-04-28 07:51 | CP.PCM.PN ---
Subjective - Date & Time of Evaluation Date of Evaluation: 04/28/17 Time of Evaluation: 07:50 - Subjective Subjective: seen examined bedisde no complaints denies cp sob calf tenderness hd stable nad, STABLE [place] [facility] [place] - Vital Signs/Intake and Output Vital Signs (last 24 hours): Temp Pulse Resp BP Pulse Ox 97.4 F L 73 12 126/65 99 04/28/17 04:00 04/28/17 06:00 04/28/17 06:00 04/28/17 06:00 04/28/17 06:00 Intake and Output: 04/28/17 04/28/17 06:59 18:59 Intake Total 1700 Output Total 400 Balance 1300 - Labs Labs: 04/28/17 05:00 04/28/17 05:00 - Constitutional Appears: Non-toxic, No Acute Distress - Head Exam Head Exam: ATRAUMATIC, NORMOCEPHALIC - Eye Exam Eye Exam: EOMI, Normal appearance, PERRL Pupil Exam: NORMAL ACCOMODATION - ENT Exam ENT Exam: Mucous Membranes Moist, Normal Exam - Neck Exam Neck Exam: Full ROM, Normal Inspection - Respiratory Exam Respiratory Exam: Clear to Ausculation Bilateral, NORMAL BREATHING PATTERN - Cardiovascular Exam Cardiovascular Exam: REGULAR RHYTHM, +S1, +S2 - GI/Abdominal Exam GI & Abdominal Exam: Soft, Normal Bowel Sounds. absent: Mass, Organomegaly - Extremities Exam Extremities Exam: Full ROM, Normal Capillary Refill - Back Exam Back Exam: absent: CVA tenderness (L), CVA tenderness (R) - Neurological Exam Neurological Exam: Alert, Awake - Psychiatric Exam Psychiatric exam: Normal Affect, Normal Mood - Skin Skin Exam: Dry, Warm Assessment and Plan - Assessment and Plan (Free Text) Plan: 40 y/o male with multi Rx medication overdose, evaluated by psych, for crisis eval [place] [facility]. Patient is medically stable for discharge [place] [facility] Substance Overdose -downgrade to MS -regular diet -Supportive care per poison control -Repeat labs, EtOH level in AM; EKG in AM -Psych consult -SCDs for DVT PPx
--- NOTE | 2017-04-28 08:08 | CP.CCUPN ---
CCU Subjective - Physician Review Events Since Last Encounter (Free Text): 04/28/17 16:45 The patient was Seen and examined by me at the bedside, Medical records reviewed and Management issues were discussed and formulated with the house staff. Events reviewed More Awake today, comfortable, NAD Pt AAO x3. Alert, follows some commands Denies any chest pain, SOB or Palpitations Afebrile, NSR on the monitor CCU Objective - Vital Signs / Intake & Output Vital Signs (Last 4 hours): Vital Signs Pulse Resp BP Pulse Ox 04/28/17 06:00 73 12 126/65 99 Intake and Output (Last 8hrs): Intake & Output 04/27/17 04/28/17 04/28/17 22:59 06:59 14:59 Intake Total 1800 1700 Output Total 600 400 Balance 1200 1300 Intake: IV 1200 1700 Oral 600 Output: Urine 600 400 Urethral (Ray) 600 400 - Physical Exam Physical Exam Limitations: Positive for: Altered Mental Status Head: Positive for: Atraumatic, Normocephalic Pupils: Positive for: PERRL Extroacular Muscles: Positive for: EOMI Conjunctiva: Positive for: Normal Mouth: Positive for: Moist Mucous Membranes Neck: Positive for: Normal Range of Motion, Trachea Midline. Negative for: Meningeal Signs, MIDLINE TENDERNESS, Paraspinal Tenderness, JVD, Lymphadenopathy , Bruit, Other Respiratory/Chest: Positive for: Clear to Auscultation, Good Air Exchange. Negative for: Respiratory Distress, Accessory Muscle Use, Decreased Breath Sounds, Rhonchi, Tachypneic Cardiovascular: Positive for: Regular Rate and Rhythm, Normal S1, S2, Peripheal Pulses Present. Negative for: Murmurs Abdomen: Positive for: Normal Bowel Sounds. Negative for: Tenderness, Distention Upper Extremity: Positive for: Normal Inspection, NORMAL PULSES, Capillary Refill < 2s. Negative for: Cyanosis, Edema Lower Extremity: Positive for: Normal Inspection, NORMAL PULSES, Capillary Refill < 2 s. Negative for: Edema, CALF TENDERNESS Neurological: Positive for: GCS=15, CN II-XII Intact, Speech Normal, Motor Func Grossly Intact, Normal Sensory Function Psychiatric: Positive for: Alert, Oriented x 3 - Patient Studies Lab Studies: Lab Studies 04/28/17 04/28/17 04/28/17 Range/Units 05:00 05:00 04:11 WBC 8.8 (4.8-10.8) K/uL RBC 4.72 (4.40-5.90) Mil/uL Hgb 13.8 (12.0-18.0) g/dL Hct 41.6 (35.0-51.0) % MCV 88.1 (80.0-94.0) fl MCH 29.3 (27.0-31.0) pg MCHC 33.3 (33.0-37.0) g/dL RDW 13.0 (11.5-14.5) % Plt Count 249 (130-400) K/uL Sodium 140 (132-148) mmol/l Potassium 3.7 (3.6-5.0) MMOL/L Chloride 101 (98-107) mmol/L Carbon Dioxide 29 (22-30) mmol/L Anion Gap 14 (10-20) BUN 8 L (9-20) mg/dl Creatinine 0.8 (0.8-1.5) mg/dl Est GFR ( Amer) > 60 Est GFR (Non-Af Amer) > 60 POC Glucose (mg/dL) 91 (65-110) mg/dL Random Glucose 97 (75-110) mg/dL Calcium 9.1 (8.4-10.2) mg/dL 04/27/17 04/27/17 04/27/17 Range/Units 22:26 15:49 11:37 WBC (4.8-10.8) K/uL RBC (4.40-5.90) Mil/uL Hgb (12.0-18.0) g/dL Hct (35.0-51.0) % MCV (80.0-94.0) fl MCH (27.0-31.0) pg MCHC (33.0-37.0) g/dL RDW (11.5-14.5) % Plt Count (130-400) K/uL Sodium (132-148) mmol/l Potassium (3.6-5.0) MMOL/L Chloride (98-107) mmol/L Carbon Dioxide (22-30) mmol/L Anion Gap (10-20) BUN (9-20) mg/dl Creatinine (0.8-1.5) mg/dl Est GFR ( Amer) Est GFR (Non-Af Amer) POC Glucose (mg/dL) 107 86 74 (65-110) mg/dL Random Glucose (75-110) mg/dL Calcium (8.4-10.2) mg/dL 04/27/17 Range/Units 10:17 WBC (4.8-10.8) K/uL RBC (4.40-5.90) Mil/uL Hgb (12.0-18.0) g/dL Hct (35.0-51.0) % MCV (80.0-94.0) fl MCH (27.0-31.0) pg MCHC (33.0-37.0) g/dL RDW (11.5-14.5) % Plt Count (130-400) K/uL Sodium (132-148) mmol/l Potassium (3.6-5.0) MMOL/L Chloride (98-107) mmol/L Carbon Dioxide (22-30) mmol/L Anion Gap (10-20) BUN (9-20) mg/dl Creatinine (0.8-1.5) mg/dl Est GFR ( Amer) Est GFR (Non-Af Amer) POC Glucose (mg/dL) 69 (65-110) mg/dL Random Glucose (75-110) mg/dL Calcium (8.4-10.2) mg/dL Laboratory Results - last 24 hr 04/27/17 04/27/17 04/27/17 10:17 11:37 15:49 WBC RBC Hgb Hct MCV MCH MCHC RDW Plt Count Sodium Potassium Chloride Carbon Dioxide Anion Gap BUN Creatinine Est GFR ( Amer) Est GFR (Non-Af Amer) POC Glucose (mg/dL) 69 74 86 Random Glucose Calcium 04/27/17 04/28/17 04/28/17 22:26 04:11 05:00 WBC 8.8 RBC 4.72 Hgb 13.8 Hct 41.6 MCV 88.1 MCH 29.3 MCHC 33.3 RDW 13.0 Plt Count 249 Sodium Potassium Chloride Carbon Dioxide Anion Gap BUN Creatinine Est GFR ( Amer) Est GFR (Non-Af Amer) POC Glucose (mg/dL) 107 91 Random Glucose Calcium 04/28/17 05:00 WBC RBC Hgb Hct MCV MCH MCHC RDW Plt Count Sodium 140 Potassium 3.7 Chloride 101 Carbon Dioxide 29 Anion Gap 14 BUN 8 L Creatinine 0.8 Est GFR ( Amer) > 60 Est GFR (Non-Af Amer) > 60 POC Glucose (mg/dL) Random Glucose 97 Calcium 9.1 Fingerstick Blood Sugar Results: 91 Critical Care Progress Note - Extremities/Vascular Does the Patient have a Central Venous Catheter?: No Does the Patient need a Central Venous Catheter?: No Does the Patient have a Ray Catheter?: Yes Does the Patient need a Ray Catheter?: No (Will remove today ) - Nutrition Nutrition: Nutrition Category Date Time Status Heart Healthy Diet [DIET] Diets 04/27/17 Breakfast Active Assessment/Plan (1) Alcohol intoxication Current Visit: Yes Status: Acute (2) DVT prophylaxis Current Visit: Yes Status: Acute (3) Overdose Current Visit: Yes Status: Acute - Assessment and Plan (Free Text) Assessment: Pt hemodynamically stable Continue with frequent neuro check Pt was seen by Psych, will be referred for screening for involuntary admission for suicide risk Continue 1:1 constant observations
[2017-04-28 16:33] LABS: ALBUMIN 3.4 g/dL (3.5-5.0)
[2017-04-28 16:35] LABS: ALB/GLOB RATIO 1.2 (1.0-2.1); BILIRUBIN,DIRECT 0.3 mg/ml (0.0-0.4)
[2017-04-28 17:54] LABS: SQUAMOUS EPITHIAL < 1 /hpf (0-5); URINE BACTERIA RARE (<OCC); URINE BILIRUBIN NEGATIVE (NEGATIVE); URINE BLOOD NEGATIVE (NEGATIVE); URINE CLARITY CLEAR (Clear); URINE COLOR YELLOW (YELLOW); URINE GLUCOSE (UA) NEG (Normal); URINE LEUKOCYTE ESTERASE TRACE Leu/uL (Negative); URINE NITRATE NEGATIVE (NEGATIVE); URINE PROTEIN NEGATIVE (NEGATIVE); URINE UROBILINOGEN 0.2-1.0 mg/dL (0.2-1.0)
[2017-04-28 23:43] VITALS: RESP 20
[2017-04-29 06:54] LABS: ALB/GLOB RATIO 1.3 (1.0-2.1); BILIRUBIN,DIRECT 0.3 mg/ml (0.0-0.4)
[2017-04-29 08:31] VITALS: BP 111/66; PULSE 70; TEMP 98; O2SAT 97
--- NOTE | 2017-04-29 11:38 | CP.PCM.DIS ---
Provider - Provider Date of Admission: 04/27/17 01:48 Attending physician: Richard Concepcion MD Time Spent in preparation of Discharge (in minutes): 30 Hospital Course - Lab Results Lab Results: Micro Results 04/27/17 15:55 Nose MRSA Culture (Admit) - Final MRSA NOT DETECTED Most Recent Lab Values WBC 8.8 K/uL (4.8-10.8) 04/28/17 05:00 RBC 4.72 Mil/uL (4.40-5.90) 04/28/17 05:00 Hgb 13.8 g/dL (12.0-18.0) 04/28/17 05:00 Hct 41.6 % (35.0-51.0) 04/28/17 05:00 MCV 88.1 fl (80.0-94.0) 04/28/17 05:00 MCH 29.3 pg (27.0-31.0) 04/28/17 05:00 MCHC 33.3 g/dL (33.0-37.0) 04/28/17 05:00 RDW 13.0 % (11.5-14.5) 04/28/17 05:00 Plt Count 249 K/uL (130-400) 04/28/17 05:00 MPV 7.4 fl (7.2-11.7) 04/27/17 05:00 Neut % (Auto) 41.8 % (50.0-75.0) L 04/27/17 00:49 Lymph % (Auto) 48.3 % (20.0-40.0) H 04/27/17 00:49 [place] % (Auto) 6.0 % (0.0-10.0) 04/27/17 00:49 Eos % (Auto) 3.1 % (0.0-4.0) 04/27/17 00:49 Baso % (Auto) 0.8 % (0.0-2.0) 04/27/17 00:49 Neut # 2.7 K/uL (1.8-7.0) 04/27/17 00:49 Lymph # 3.1 K/uL (1.0-4.3) 04/27/17 00:49 [place] # 0.4 K/uL (0.0-0.8) 04/27/17 00:49 Eos # 0.2 K/uL (0.0-0.7) 04/27/17 00:49 Baso # 0.1 K/uL (0.0-0.2) 04/27/17 00:49 pCO2 57 mm/Hg (35-45) H 04/27/17 00:36 pO2 66 mm/Hg (80-100) L 04/27/17 00:36 HCO3 25.1 mmol/L (21-28) 04/27/17 00:36 ABG pH 7.30 (7.35-7.45) L 04/27/17 00:36 ABG Total CO2 29.7 mmol/L (22-28) H 04/27/17 00:36 ABG O2 Saturation 94.2 % (95-98) L 04/27/17 00:36 ABG Base Excess 0.4 mmol/L (-2.0-3.0) 04/27/17 00:36 Castillo Test Yes 04/27/17 00:36 ABG Potassium 3.6 mmol/L (3.6-5.2) 04/27/17 00:36 A-a O2 Difference 62.0 mm/Hg 04/27/17 00:36 Sodium 142.0 mmol/L (132-148) 04/27/17 00:36 Chloride 106.0 mmol/L (98-107) 04/27/17 00:36 Glucose 108 mg/dL (75-110) 04/27/17 00:36 Lactate 2.6 mmol/L (0.7-2.1) H 04/27/17 00:36 Vent Mode 2lnc 04/27/17 00:36 FiO2 28.0 % 04/27/17 00:36 Crit Value Called To hayley Ghosh md 04/27/17 00:36 Crit Value Called By Radha deshpande 04/27/17 00:36 Crit Value Read Back Y 04/27/17 00:36 Blood Gas Notified Time 44 04/27/17 00:36 Sodium 140 mmol/l (132-148) 04/28/17 05:00 Potassium 3.7 MMOL/L (3.6-5.0) 04/28/17 05:00 Chloride 101 mmol/L (98-107) 04/28/17 05:00 Carbon Dioxide 29 mmol/L (22-30) 04/28/17 05:00 Anion Gap 14 (10-20) 04/28/17 05:00 BUN 8 mg/dl (9-20) L 04/28/17 05:00 Creatinine 0.8 mg/dl (0.8-1.5) 04/28/17 05:00 Est GFR ( Amer) > 60 04/28/17 05:00 Est GFR (Non-Af Amer) > 60 04/28/17 05:00 POC Glucose (mg/dL) 109 mg/dL (65-110) 04/29/17 10:51 Random Glucose 97 mg/dL (75-110) 04/28/17 05:00 Calcium 9.1 mg/dL (8.4-10.2) 04/28/17 05:00 Phosphorus 5.4 mg/dl (2.5-4.5) H 04/27/17 00:49 Magnesium 2.3 MG/DL (1.6-2.3) 04/27/17 00:49 Total Bilirubin 0.8 mg/dl (0.2-1.3) 04/29/17 06:15 Direct Bilirubin 0.3 mg/ml (0.0-0.4) 04/29/17 06:15 AST 31 U/L (17-59) 04/29/17 06:15 ALT 35 U/L (21-72) 04/29/17 06:15 Alkaline Phosphatase 70 U/L (38-126) 04/29/17 06:15 Total Protein 7.2 G/DL (6.3-8.2) 04/29/17 06:15 Albumin 4.0 g/dL (3.5-5.0) 04/29/17 06:15 Globulin 3.2 gm/dL (2.2-3.9) 04/29/17 06:15 Albumin/Globulin Ratio 1.3 (1.0-2.1) 04/29/17 06:15 Arterial Blood Potassium 3.6 mmol/L (3.6-5.2) 04/27/17 00:36 Urine Color Yellow (YELLOW) 04/28/17 17:08 Urine Clarity Clear (Clear) 04/28/17 17:08 Urine pH 7.0 (5.0-8.0) 04/28/17 17:08 Ur Specific [place] 1.013 (1.003-1.030) 04/28/17 17:08 Urine Protein Negative mg/dL (NEGATIVE) 04/28/17 17:08 Urine Glucose (UA) Neg mg/dL (Normal) 04/28/17 17:08 Urine Ketones Negative mg/dL (NEGATIVE) 04/28/17 17:08 Urine Blood Negative (NEGATIVE) 04/28/17 17:08 Urine Nitrate Negative (NEGATIVE) 04/28/17 17:08 Urine Bilirubin Negative (NEGATIVE) 04/28/17 17:08 Urine Urobilinogen 0.2-1.0 mg/dL (0.2-1.0) 04/28/17 17:08 Ur Leukocyte Esterase Trace Dayo/uL (Negative) 04/28/17 17:08 Urine RBC (Auto) 3 /hpf (0-3) 04/28/17 17:08 Urine Microscopic WBC 9 /hpf (0-5) H 04/28/17 17:08 Ur Squamous Epith Cells < 1 /hpf (0-5) 04/28/17 17:08 Urine Bacteria Rare (<OCC) 04/28/17 17:08 Salicylates < 1.0 mg/dl 04/27/17 00:49 Urine Opiates Screen Negative (NEGATIVE) 04/27/17 01:04 Urine Methadone Screen Negative (NEGATIVE) 04/27/17 01:04 Acetaminophen < 10.0 ug/ml (10.0-30.0) L 04/27/17 00:49 Ur Barbiturates Screen Negative (NEGATIVE) 04/27/17 01:04 Phenytoin < 3.0 ug/ML (10-20) L 04/27/17 00:49 Valproic Acid < 10.0 ug/mL (50.0-100.0) L 04/27/17 00:49 Ur Phencyclidine Scrn Negative (NEGATIVE) 04/27/17 01:04 Ur Amphetamines Screen Negative (NEGATIVE) 04/27/17 01:04 U Benzodiazepines Scrn Negative (NEGATIVE) 04/27/17 01:04 U Oth Cocaine Metabols Negative (NEGATIVE) 04/27/17 01:04 U Cannabinoids Screen Negative (NEGATIVE) 04/27/17 01:04 Alcohol, Quantitative 172 mg/dl (0-10) H 04/27/17 05:00 - Hospital Course Hospital Course: 40 y/o male with multi Rx medication overdose, evaluated by psych, for crisis eval by [facility] [place]. Patient is medically stable for discharge to [facility]. Substance Overdose -downgrade to MS -regular diet -Supportive care per poison control -Repeat labs, EtOH level in AM; EKG in AM -Psych consult -SCDs for DVT PPx Discharge Exam - Head Exam Head Exam: ATRAUMATIC, NORMOCEPHALIC - Eye Exam Eye Exam: EOMI, Normal appearance, PERRL - Respiratory Exam Respiratory Exam: Clear to PA & Lateral, NORMAL BREATHING PATTERN - Cardiovascular Exam Cardiovascular Exam: RRR, +S1, +S2 - GI/Abdominal Exam GI & Abdominal Exam: Normal Bowel Sounds, Soft. absent: Organomegaly, Tenderness - Extremities Exam Extremities exam: normal capillary refill, pedal pulses present - Back Exam Back exam: absent: CVA tenderness (L), CVA tenderness (R) - Neurological Exam Neurological exam: Alert, Oriented x3 - Psychiatric Exam Psychiatric exam: Normal Affect, Normal Mood - Skin Skin Exam: Dry, Warm Discharge Plan - Follow Up Plan Condition: CRITICAL Disposition: DISCHARGE TO PSYCH HOSPITAL Instructions: Alcohol Intoxication (DC)
== END 2017-04-29 12:43 | DRG 449 ==
LOC: H.ER 00:07 → EDBD 01:48 → H.ERHOLD 01:48 → H.ICU/CCU 03:26 → H.MEDSURG1 04-28 11:53
PROVIDERS: ADMIT Internal Medicine; ATTEND Internal Medicine
DX: T42.6X1A Poisoning by other antiepileptic and sedative-hypnotic drugs, accidental (unintentional), initial encounter (principal); F10.14 Alcohol abuse with alcohol-induced mood disorder; F10.129 Alcohol abuse with intoxication, unspecified; R40.0 Somnolence; T43.591A Poisoning by other antipsychotics and neuroleptics, accidental (unintentional), initial encounter; T43.211A Poisoning by selective serotonin and norepinephrine reuptake inhibitors, accidental (unintentional), initial encounter; Y92.238 Other place in hospital as the place of occurrence of the external cause; Y90.8 Blood alcohol level of 240 mg/100 ml or more; F43.21 Adjustment disorder with depressed mood